=== PATIENT | female | born 1940 | race Caucasian/White ===

== ENCOUNTER → 2016-06-09 | Outpatient (CLI) | payer MEDICARE, OTHER ==
--- NOTE | 2016-06-09 15:51 | RADRPT ---
PROCEDURE: XR Left Ankle. CLINICAL INDICATION: Left ankle pain. TECHNIQUE: 3 views. Frontal, lateral, and oblique. COMPARISON: None. FINDINGS: There is no fracture or dislocation. There is diffuse soft tissue swelling. Articular surfaces are intact. There is no lytic or blastic lesion. There is no radiopaque foreign body. IMPRESSION: 1. Diffuse soft tissue swelling. 2. Otherwise normal images of the left ankle. RPTAT: QQ .Tariq Flanagan MD, MD Date Time Electronically viewed and signed by .Tariq Flanagan MD, MD on 06/09/2016 15:50 .R/
== END | disposition home or self-care (01) ==
LOC: RAD 14:53
PROVIDERS: ATTEND Emergency Medicine
DX: R60.9 Edema, unspecified (principal)
CPT/HCPCS: 73610